=== PATIENT | male | born 1985 | race Two or more races ===

== ENCOUNTER 2018-01-17 15:47 | Inpatient (IN) | payer OTHER ==
[2018-01-17 16:15] LABS: BASO % 0 % (0-3); EOS % 0 % (0-3); HEMATOCRIT 43.6 % (39.0-53.0); HEMOGLOBIN 14.6 g/dL (13.0-17.5); LYMPH # 1.1 x10^3/uL (1.0-4.8); LYMPH % 7 % (24-48); MEAN CORPUSCULAR HEMOGLOBIN 28 pg (25-35); MEAN CORPUSCULAR HGB CONC 34 g/dL (31-37); MEAN CORPUSCULAR VOLUME 83 fL (79-100); MONO # 0.6 x10^3/uL (0.0-1.1); MONO % 4 % (0-9); NEUT # 15.6 x10^3uL (1.8-7.7); NEUT % 90 % (31-73); PLATELET COUNT 186 x10^3/uL (140-400); RED BLOOD COUNT 5.27 x10^6/uL (4.30-5.70); WHITE BLOOD COUNT 17.4 x10^3/uL (4.0-11.0)
[2018-01-17] MEDS: fentaNYL PF VIAL 100 MCG/2 ML VIAL IV ×2 (16:19→20:11)
[2018-01-17 16:21] LABS: ADD MAN DIFF? YES
[2018-01-17 16:25] LABS: ANION GAP 14 (6-14); BLOOD UREA NITROGEN 15 mg/dL (8-26); BUN/CREATININE RATIO 15 (6-20); CALCIUM 8.3 mg/dL (8.5-10.1); CARBON DIOXIDE 20 mmol/L (21-32); CHLORIDE 105 mmol/L (98-107); GFR 87.2; GLUCOSE 119 mg/dL (70-99); POTASSIUM 3.9 mmol/L (3.5-5.1); SODIUM 139 mmol/L (136-145)
[2018-01-17 16:31] LABS: ALBUMIN/GLOBULIN RATIO 1.1 (1.0-1.7); ALK PHOS 66 U/L (46-116); ALT (SGPT) 29 U/L (16-63); AST (SGOT) 20 U/L (15-37); LIPASE 121 U/L (73-393); TOTAL BILIRUBIN 0.6 mg/dL (0.2-1.0); TOTAL PROTEIN 7.5 g/dL (6.4-8.2)
[2018-01-17 18:06] LABS: % BASOS 1 % (0-3); % LYMPHS 9 % (24-48); % MONOS 3 % (0-10); % SEGS 87 % (35-66); PLT ESTIMATE ADEQUATE (ADEQUATE)
[2018-01-17] MEDS ORDERED: MORPHINE SULFATE 4 MG/ML DISP.SYRIN. IV (19:30)
[2018-01-17] MEDS ORDERED: ACETAMINOPHEN 325 MG TABLET. PO (19:30)
[2018-01-17] MEDS ORDERED: DOCUSATE SODIUM 100 MG CAPSULE. PO (19:30)
[2018-01-17] MEDS ORDERED: hydrALAZINE 20 MG/ML VIAL. IVP (19:30)
[2018-01-17] MEDS ORDERED: ONDANSETRON PF 4 MG/2 ML VIAL. IV (19:30)
[2018-01-17] MEDS ORDERED: traMADol 50 MG TABLET PO (19:30)
[2018-01-17] MEDS: ONDANSETRON PF 4 MG/2 ML VIAL. IV (19:43)
[2018-01-17] MEDS: IV NORMAL SALINE 1000ML BAG 1,000 ML IV ×2 (19:44→20:56)
[2018-01-17] MEDS: MORPHINE SULFATE 4 MG/ML DISP.SYRIN. IV (19:44)
[2018-01-17] MEDS: PIPERACILLIN/TAZOBACTAM 3.375 GM in IV NORMAL SALINE 50ML 50 ML IV (19:44)
[2018-01-17] MEDS: FAMOTIDINE 20 MG/2 ML VIAL IVP (20:26)
[2018-01-18] MEDS: PIPERACILLIN/TAZOBACTAM 3.375 GM in IV NORMAL SALINE 50ML 50 ML IV ×5 (00:32→23:18)
[2018-01-18] MEDS: fentaNYL PF VIAL 100 MCG/2 ML VIAL IV ×4 (02:33→17:52)
[2018-01-18 04:10] LABS: ADD MAN DIFF? NO
[2018-01-18 04:22] LABS: BASO # 0.1 x10^3/uL (0.0-0.2); BASO % 0 % (0-3); EOS % 0 % (0-3); HEMATOCRIT 42.1 % (39.0-53.0); HEMOGLOBIN 14.1 g/dL (13.0-17.5); LYMPH # 2.5 x10^3/uL (1.0-4.8); LYMPH % 17 % (24-48); MEAN CORPUSCULAR HEMOGLOBIN 28 pg (25-35); MEAN CORPUSCULAR HGB CONC 34 g/dL (31-37); MEAN CORPUSCULAR VOLUME 84 fL (79-100); MONO # 1.8 x10^3/uL (0.0-1.1); MONO % 12 % (0-9); NEUT # 10.3 x10^3uL (1.8-7.7); NEUT % 70 % (31-73); PLATELET COUNT 164 x10^3/uL (140-400); RED BLOOD COUNT 5.02 x10^6/uL (4.30-5.70); RED CELL DISTRIBUTION WIDTH 15.3 % (11.5-14.5); WHITE BLOOD COUNT 14.6 x10^3/uL (4.0-11.0)
[2018-01-18 04:26] LABS: ANION GAP 5 (6-14); BLOOD UREA NITROGEN 13 mg/dL (8-26); CALCIUM 7.8 mg/dL (8.5-10.1); CARBON DIOXIDE 25 mmol/L (21-32); CHLORIDE 107 mmol/L (98-107); CREATININE 0.9 mg/dL (0.7-1.3); GFR 98.4; GLUCOSE 98 mg/dL (70-99); POTASSIUM 3.6 mmol/L (3.5-5.1); SODIUM 137 mmol/L (136-145)
[2018-01-18] MEDS: IV NORMAL SALINE 1000ML BAG 1,000 ML IV ×2 (06:09→15:42)
[2018-01-18] MEDS ORDERED: fentaNYL PF VIAL 250 MCG/5 ML VIAL (10:15)
[2018-01-18] MEDS ORDERED: LIDOCAINE 2% PF Vial for OR 5 ML VIAL. (10:15)
[2018-01-18] MEDS ORDERED: DEXAMETHASONE SOD PHOS 20 MG/5 ML VIAL. (10:15)
[2018-01-18] MEDS ORDERED: ROCURONIUM 50 MG/5 ML VIAL. ×2 (10:15→11:33)
[2018-01-18] MEDS ORDERED: ONDANSETRON PF 4 MG/2 ML VIAL. (10:15)
[2018-01-18] MEDS ORDERED: PROPOFOL 20 ML IV (10:15)
[2018-01-18] MEDS: BUPIVACAINE-EPI 0.5%-1:200000 50 ML VIAL. (11:34)
[2018-01-18] MEDS: IOHEXOL 300 MG/ML 100ML VIAL. (11:47)
[2018-01-18] MEDS: SURGICEL HEMOSTAT 4X8 EACH. (11:58)
[2018-01-18] MEDS ORDERED: GLYCOPYRROLATE 1 MG/5 ML VIAL. (12:21)
[2018-01-18] MEDS ORDERED: NEOSTIGMINE METHYLSULFATE 5 MG/5 ML SYRINGE. (12:21)
[2018-01-18] MEDS: IV RINGERS,LACTATED 1000ML 1,000 ML IV (12:35)
[2018-01-18] MEDS ORDERED: LIDOCAINE 1% PF 2 ML VIAL. ID (12:45)
[2018-01-18] MEDS ORDERED: MORPHINE SULFATE 2 MG/ML DISP.SYRIN. IV (12:45)
[2018-01-18] MEDS ORDERED: PROCHLORPERAZINE 10 MG/2 ML VIAL. IV (12:45)
[2018-01-18] MEDS ORDERED: fentaNYL PF VIAL 100 MCG/2 ML VIAL IV ×2 (12:45)
[2018-01-18] MEDS ORDERED: SEVOFLURANE 61 TO 120 MINUTES. IH (12:45)
[2018-01-18] MEDS ORDERED: ONDANSETRON PF 4 MG/2 ML VIAL. IV (12:45)
[2018-01-18] MEDS ORDERED: oxyCODONE/APAP 5/325 1 TAB TABLET PO (13:00)
[2018-01-18] MEDS: busPIRone 10 MG TABLET. PO ×2 (14:30→18:59)
[2018-01-18 16:15] LABS: MRSA BY PCR Negative (Negative)
[2018-01-18] MEDS: oxyCODONE/APAP 5/325 1 TAB TABLET PO ×2 (18:59→23:12)
[2018-01-18] MEDS: FAMOTIDINE 20 MG/2 ML VIAL IVP (19:00)
[2018-01-18] MEDS: MORPHINE SULFATE 2 MG/ML DISP.SYRIN. IV ×2 (19:01→23:14)
[2018-01-18] MEDS: hydrOXYzine PAMOATE 25 MG CAPSULE PO (20:50)
[2018-01-19 05:11] LABS: ADD MAN DIFF? NO
[2018-01-19] MEDS: PIPERACILLIN/TAZOBACTAM 3.375 GM in IV NORMAL SALINE 50ML 50 ML IV ×4 (05:17→22:59)
[2018-01-19 05:38] LABS: BASO % 0 % (0-3); EOS % 0 % (0-3); HEMATOCRIT 39.2 % (39.0-53.0); LYMPH # 1.3 x10^3/uL (1.0-4.8); LYMPH % 10 % (24-48); MEAN CORPUSCULAR HEMOGLOBIN 28 pg (25-35); MEAN CORPUSCULAR HGB CONC 33 g/dL (31-37); MEAN CORPUSCULAR VOLUME 85 fL (79-100); MONO % 8 % (0-9); NEUT # 10.6 x10^3uL (1.8-7.7); NEUT % 82 % (31-73); PLATELET COUNT 164 x10^3/uL (140-400); RED BLOOD COUNT 4.62 x10^6/uL (4.30-5.70); RED CELL DISTRIBUTION WIDTH 15.3 % (11.5-14.5)
[2018-01-19 05:50] LABS: ANION GAP 6 (6-14); BLOOD UREA NITROGEN 10 mg/dL (8-26); CALCIUM 7.6 mg/dL (8.5-10.1); CARBON DIOXIDE 27 mmol/L (21-32); CHLORIDE 106 mmol/L (98-107); CREATININE 0.9 mg/dL (0.7-1.3); GFR 98.4; GLUCOSE 121 mg/dL (70-99); POTASSIUM 3.6 mmol/L (3.5-5.1); SODIUM 139 mmol/L (136-145)
[2018-01-19] MEDS: MORPHINE SULFATE 2 MG/ML DISP.SYRIN. IV (08:49)
[2018-01-19] MEDS: CETIRIZINE HCL 10 MG TABLET. PO (10:19)
[2018-01-19] MEDS: busPIRone 10 MG TABLET. PO ×2 (10:19→21:53)
[2018-01-19] MEDS: oxyCODONE/APAP 5/325 1 TAB TABLET PO ×2 (16:29→21:53)
[2018-01-19] MEDS: hydrOXYzine PAMOATE 25 MG CAPSULE PO (21:53)
[2018-01-19] MEDS: LACTOBACILLUS RHAMNOSUS GG 1 CAPSULE. PO (21:53)
[2018-01-20] MEDS: PIPERACILLIN/TAZOBACTAM 3.375 GM in IV NORMAL SALINE 50ML 50 ML IV ×2 (06:37→12:02)
[2018-01-20 08:29] LABS: ADD MAN DIFF? NO
[2018-01-20 08:33] LABS: BASO # 0.1 x10^3/uL (0.0-0.2); BASO % 1 % (0-3); EOS # 0.1 x10^3/uL (0.0-0.7); EOS % 1 % (0-3); HEMATOCRIT 39.9 % (39.0-53.0); HEMOGLOBIN 13.6 g/dL (13.0-17.5); LYMPH # 3.5 x10^3/uL (1.0-4.8); LYMPH % 36 % (24-48); MEAN CORPUSCULAR HEMOGLOBIN 29 pg (25-35); MEAN CORPUSCULAR HGB CONC 34 g/dL (31-37); MEAN CORPUSCULAR VOLUME 84 fL (79-100); MONO # 0.9 x10^3/uL (0.0-1.1); MONO % 9 % (0-9); NEUT # 5.2 x10^3uL (1.8-7.7); NEUT % 53 % (31-73); PLATELET COUNT 164 x10^3/uL (140-400); RED BLOOD COUNT 4.74 x10^6/uL (4.30-5.70); RED CELL DISTRIBUTION WIDTH 15.5 % (11.5-14.5); WHITE BLOOD COUNT 9.8 x10^3/uL (4.0-11.0)
[2018-01-20 09:02] LABS: ANION GAP 5 (6-14); BLOOD UREA NITROGEN 10 mg/dL (8-26); CALCIUM 7.9 mg/dL (8.5-10.1); CARBON DIOXIDE 28 mmol/L (21-32); CHLORIDE 107 mmol/L (98-107); CREATININE 0.9 mg/dL (0.7-1.3); GFR 98.4; GLUCOSE 82 mg/dL (70-99); POTASSIUM 3.5 mmol/L (3.5-5.1); SODIUM 140 mmol/L (136-145)
[2018-01-20] MEDS: busPIRone 10 MG TABLET. PO (09:20)
[2018-01-20] MEDS: LACTOBACILLUS RHAMNOSUS GG 1 CAPSULE. PO (09:20)
[2018-01-20] MEDS: CETIRIZINE HCL 10 MG TABLET. PO (09:20)
== END 2018-01-20 16:10 | disposition home or self-care (01) | DRG 418 ==
LOC: ER 15:47 → 4 NORTH 19:42
PROC: 0FT44ZZ Resection of Gallbladder, Percutaneous Endoscopic Approach (ICD-10-PCS; principal; 2018-01-18 10:00)
PROC: BF131ZZ Fluoroscopy of Gallbladder and Bile Ducts using Low Osmolar Contrast (ICD-10-PCS; 2018-01-18 10:00)
DX: K80.00 Calculus of gallbladder with acute cholecystitis without obstruction (principal); R65.10 Systemic inflammatory response syndrome (SIRS) of non-infectious origin without acute organ dysfunction; F32.9 Major depressive disorder, single episode, unspecified; J45.20 Mild intermittent asthma, uncomplicated
CPT/HCPCS: 36415; 74300; 76705; 80048; 80053; 83690; 85007; 85025; 87641; 88304; 96365; 96375; 99285; 99285-25; A7015; J1100; J2001; J2270; J2405; J2543; J2704; J2710; J3010; J3490; J7030; J7120; Q0177; Q9967; S0028